=== PATIENT | male | born 1990 | race Caucasian/White ===

== ENCOUNTER 2019-01-14 15:46 | Emergency (ER) | payer OTHER ==
[~2019-01-14] VITALS: Ht 170.2 cm; Wt 79.6 kg
[2019-01-14 16:05] VITALS: BP 114/72
--- NOTE | 2019-01-14 16:44 | NUR ---
PT TO ED WITH C/O LOWER BACK PAIN S/P LIFTING WEIGHTS. NO OBVIOUS TRAUMA/INJURY NOTED. PT PLACED INTO CHAIR FOR MD MENSAH.
[2019-01-14] MEDS ORDERED: DEXAMETHASONE 10 MG/ML VIAL IM ONE (17:15)
[2019-01-14] MEDS ORDERED: KETOROLAC 30 MG/ML VIAL IM ONE (17:15)
[2019-01-14 17:31] VITALS: BP 114/72
--- NOTE | 2019-01-14 17:31 | NUR ---
Patient discharged with v/s stable. Written and verbal after care instructions given and explained. Patient alert, oriented and verbalized understanding of instructions. Ambulatory with steady gait. All questions addressed prior to discharge. ID band removed. Patient advised to follow up with PMD. Rx of NAPROXE, PREDNISONE given. Patient educated on indication of medication including possible reaction and side effects. Opportunity to ask questions provided and answered.
== END 2019-01-14 17:31 | disposition home or self-care (01) ==
LOC: MED 15:46
DX: S39.012A Strain of muscle, fascia and tendon of lower back, initial encounter (principal); X50.0XXA Overexertion from strenuous movement or load, initial encounter; Y93.89 Activity, other specified; Y92.89 Other specified places as the place of occurrence of the external cause; Y99.8 Other external cause status
CPT/HCPCS: 96372; 99283; J1100; J1885

== ENCOUNTER 2019-11-30 13:35 | Emergency (ER) | payer OTHER ==
[~2019-11-30] VITALS: Ht 170.2 cm; Wt 81.6 kg
[2019-11-30 14:00] VITALS: BP 127/71
--- NOTE | 2019-11-30 14:09 | NUR ---
29 YO MALE CO LOWER BACK PAIN FOR 2 WEEKS. PT HAD BACK INJURY ABOUT 1 YEAR AGO AND WAS TREATED HERE. PT RECENTLY HAD A FLARE UP AND PAIN IS 10/10 AT THIS TIME NO PMH AND NO RX
[2019-11-30 14:46] VITALS: BP 127/71
--- NOTE | 2019-11-30 14:46 | NUR ---
Patient discharged with v/s stable. Written and verbal after care instructions given and explained. Patient alert, oriented and verbalized understanding of instructions. Ambulatory with steady gait. All questions addressed prior to discharge. ID band removed. Patient advised to follow up with PMD. Rx of NORCO AND NAPROSYN given. Patient educated on indication of medication including possible reaction and side effects. Opportunity to ask questions provided and answered.
== END 2019-11-30 14:46 | disposition home or self-care (01) ==
LOC: MED 13:35
DX: M54.5 Low back pain (principal)
CPT/HCPCS: 99283